=== PATIENT | male | born 1955 | race Caucasian/White ===

== ENCOUNTER 2016-06-05 02:35 | Outpatient (CLI) | payer OTHER ==
[2016-06-05] MEDS ORDERED: CELEXA20 MG PO (02:55)
[2016-06-05] MEDS ORDERED: METOCLOPRAM10 MG PO (02:55)
[2016-06-05] MEDS ORDERED: EQ OMEPRAZOLE20 MG PO (02:56)
[2016-06-05] MEDS ORDERED: ALLERGY REL10 MG PO (02:57)
[2016-06-05] MEDS ORDERED: FLUTICASONE50 MCG (02:58)
[2016-06-05] MEDS ORDERED: PROAIR HFA IN (02:59)
[2016-06-05] MEDS ORDERED: ANORO ELLIPTA 61 AER IN (03:09)
== END 2016-06-05 02:46 | disposition short-term general hospital (02) ==
LOC: AMB 02:35
DX: R06.09 Other forms of dyspnea (principal)
CPT/HCPCS: A0425; A0427

== ENCOUNTER 2016-06-05 02:46 | Observation (INO) | payer OTHER ==
[~2016-06-05] VITALS: Ht 172.7 cm; Wt 77.3 kg
[2016-06-05 02:53] VITALS: BP 146/90; TEMP 98
[2016-06-05] MEDS ORDERED: CELEXA20 MG PO (02:55)
[2016-06-05] MEDS ORDERED: METOCLOPRAM10 MG PO (02:55)
[2016-06-05] MEDS ORDERED: EQ OMEPRAZOLE20 MG PO (02:56)
[2016-06-05] MEDS ORDERED: ALLERGY REL10 MG PO (02:57)
[2016-06-05] MEDS ORDERED: FLUTICASONE50 MCG (02:58)
[2016-06-05] MEDS ORDERED: PROAIR HFA IN (02:59)
[2016-06-05] MEDS ORDERED: ANORO ELLIPTA 61 AER IN (03:09)
[2016-06-05 04:25] LABS: PLATELET COUNT 283 K/uL (142-355)
[2016-06-05 04:32] LABS: POTASSIUM 3.8 mmol/L (3.6-5.2); SODIUM 134 mmol/L (136-145)
[2016-06-05 05:24] VITALS: BP 106/72; TEMP 97.6; Ht 172.7 cm; Wt 77.3 kg
[2016-06-05 08:25] VITALS: BP 145/70; TEMP 97.7
[2016-06-05 12:00] VITALS: BP 103/61; BP 112/68; TEMP 97.8; TEMP 98.5
[2016-06-05 16:00] VITALS: BP 112/68; TEMP 98.5
[2016-06-05 20:00] VITALS: BP 124/74; TEMP 98.2
[2016-06-06 00:04] VITALS: BP 100/55; TEMP 98.3
[2016-06-06 04:00] VITALS: BP 107/67; TEMP 98.1
[2016-06-06 05:03] LABS: SODIUM 133 mmol/L (136-145)
[2016-06-06 05:08] LABS: PLATELET COUNT 279 K/uL (142-355)
[2016-06-06 08:00] VITALS: BP 123/73; TEMP 97.8
== END 2016-06-06 12:30 | disposition home or self-care (01) ==
LOC: ED 02:46 → MED/SURG 04:45
PROVIDERS: Emergency Medicine; ADMIT Emergency Medicine
DX: J44.1 Chronic obstructive pulmonary disease with (acute) exacerbation (principal); Z85.118 Personal history of other malignant neoplasm of bronchus and lung; R06.02 Shortness of breath
CPT/HCPCS: 36415; 36600; 80053; 82550; 82805; 83880; 84484; 85027; 94640; 94664; 94760; 96367; 96372; 96374; 96375; 99220; 99283; G0378; J1650; J2930; J3490; Q9963

== ENCOUNTER 2016-07-26 18:58 | Emergency (ER) | payer OTHER ==
[~2016-07-26] VITALS: Ht 175.3 cm; Wt 79.4 kg
[~2016-07-26 18:58] MED LIST: ALLERGY REL10 MG PO; ANORO ELLIPTA 61 AER IN; CELEXA20 MG PO; EQ OMEPRAZOLE20 MG PO; FLUTICASONE50 MCG; METOCLOPRAM10 MG PO; PROAIR HFA IN
[2016-07-26 21:25] LABS: PLATELET COUNT 250 K/uL (142-355)
[2016-07-26 21:46] LABS: POTASSIUM 4.3 mmol/L (3.6-5.2); SODIUM 135 mmol/L (136-145)
[2016-07-26 23:05] VITALS: TEMP 98.2
[2016-07-26 23:09] VITALS: BP 124/82
== END 2016-07-26 23:10 | disposition home or self-care (01) ==
LOC: ED 18:58
PROVIDERS: Emergency Medicine
DX: J44.1 Chronic obstructive pulmonary disease with (acute) exacerbation (principal)
CPT/HCPCS: 36415; 80053; 85027; 96374; 99284; J2930

== ENCOUNTER 2016-10-19 00:16 | Outpatient (CLI) | payer OTHER | END 2016-10-19 00:27 | disposition short-term general hospital (02) | LOC: AMB 00:16 | DX: R06.02 Shortness of breath (principal); R00.0 Tachycardia, unspecified | CPT/HCPCS: A0425; A0427 ==

== ENCOUNTER 2016-10-19 00:30 | Emergency (ER) | payer OTHER ==
[~2016-10-19] VITALS: Ht 162.6 cm; Wt 80.7 kg
[2016-10-19 00:59] LABS: PLATELET COUNT 333 K/uL (142-355)
[2016-10-19 01:09] LABS: PARTIAL THROMBOPLASTIN TIME 27.1 SECONDS (24.5-33.6)
[2016-10-19 01:38] LABS: SODIUM 134 mmol/L (136-145)
[2016-10-19 02:40] VITALS: BP 109/65; TEMP 98.6
== END 2016-10-19 02:41 | disposition home or self-care (01) ==
LOC: ED 00:30
PROVIDERS: Emergency Medicine
DX: J44.1 Chronic obstructive pulmonary disease with (acute) exacerbation (principal)
CPT/HCPCS: 36415; 80053; 82550; 82553; 83880; 84484; 85027; 85610; 85730; 93005; 96365; 96375; 99284; J2060; J2930; J3475

== ENCOUNTER 2016-12-04 21:04 | Emergency (ER) | payer OTHER ==
[~2016-12-04] VITALS: Ht 172.7 cm; Wt 78.9 kg
[2016-12-04 23:20] LABS: POTASSIUM 4.2 mmol/L (3.6-5.2); SODIUM 131 mmol/L (136-145)
[2016-12-05 00:19] VITALS: BP 128/77; TEMP 08.8
== END 2016-12-05 00:21 | disposition home or self-care (01) ==
LOC: ED 21:04
PROVIDERS: Specialist
DX: J44.1 Chronic obstructive pulmonary disease with (acute) exacerbation (principal)
CPT/HCPCS: 36415; 36600; 80053; 82550; 82553; 82805; 83735; 84100; 94640; 94664; 96374; 99284; J2930

== ENCOUNTER 2017-01-02 00:17 | Outpatient (CLI) | payer OTHER | END 2017-01-02 00:26 | disposition short-term general hospital (02) | LOC: AMB 00:17 | DX: R06.02 Shortness of breath (principal); R00.0 Tachycardia, unspecified | CPT/HCPCS: A0425; A0427 ==

== ENCOUNTER 2017-01-03 00:28 | Emergency (ER) | payer OTHER ==
[~2017-01-03] VITALS: Ht 175.3 cm; Wt 79.4 kg
[2017-01-03 00:53] LABS: PLATELET COUNT 321 K/uL (142-355)
[2017-01-03 00:58] LABS: POTASSIUM 3.8 mmol/L (3.6-5.2); SODIUM 132 mmol/L (136-145)
[2017-01-03 01:54] VITALS: BP 118/72; TEMP 98.2
== END 2017-01-03 01:58 | disposition home or self-care (01) ==
LOC: ED 00:28
DX: R06.09 Other forms of dyspnea (principal); J45.901 Unspecified asthma with (acute) exacerbation; J44.1 Chronic obstructive pulmonary disease with (acute) exacerbation; J06.9 Acute upper respiratory infection, unspecified
CPT/HCPCS: 36600; 80053; 82805; 83880; 85027; 85379; 99283; J7040

== ENCOUNTER 2017-02-20 12:33 | Outpatient (CLI) | payer OTHER | END 2017-02-20 12:41 | disposition short-term general hospital (02) | LOC: AMB 12:33 | DX: R06.09 Other forms of dyspnea (principal); R05 Cough | CPT/HCPCS: A0425; A0427 ==

== ENCOUNTER 2017-02-20 12:43 | Emergency (ER) | payer OTHER ==
[~2017-02-20] VITALS: Ht 172.7 cm; Wt 78.0 kg
[2017-02-20 13:46] LABS: PLATELET COUNT 301 K/uL (142-355)
[2017-02-20 14:11] LABS: SODIUM 132 mmol/L (136-145)
[2017-02-20 16:00] VITALS: BP 126/69; TEMP 98.6
== END 2017-02-20 16:10 | disposition home or self-care (01) ==
LOC: ED 12:43
PROVIDERS: Emergency Medicine
DX: J44.1 Chronic obstructive pulmonary disease with (acute) exacerbation (principal); J43.9 Emphysema, unspecified
CPT/HCPCS: 36600; 80053; 81000; 82550; 82805; 84484; 85027; 93005; 94664; 96365; 96375; 99284; J1956; J2930

== ENCOUNTER 2017-03-25 14:14 | Outpatient (CLI) | payer OTHER | END 2017-03-25 14:22 | disposition short-term general hospital (02) | LOC: AMB 14:14 | DX: R06.09 Other forms of dyspnea (principal) | CPT/HCPCS: A0425; A0427 ==

== ENCOUNTER 2017-03-25 14:22 | Emergency (ER) | payer OTHER ==
[~2017-03-25] VITALS: Ht 175.3 cm; Wt 79.8 kg
[2017-03-25 14:25] VITALS: TEMP 98.4
[2017-03-25 15:33] LABS: PLATELET COUNT 285 K/uL (142-355)
[2017-03-25 15:37] LABS: POTASSIUM 3.9 mmol/L (3.6-5.2)
[2017-03-25 17:30] VITALS: BP 128/76
== END 2017-03-25 17:30 | disposition home or self-care (01) ==
LOC: ED 14:22
PROVIDERS: Family Medicine
DX: J44.1 Chronic obstructive pulmonary disease with (acute) exacerbation (principal); E87.1 Hypo-osmolality and hyponatremia
CPT/HCPCS: 36415; 80053; 85027; 87804; 94664; 96361; 96365; 99284; J1956

== ENCOUNTER 2017-04-12 15:16 | Outpatient (CLI) | payer OTHER | END 2017-04-12 15:26 | disposition short-term general hospital (02) | LOC: AMB 15:16 | DX: R06.09 Other forms of dyspnea (principal) | CPT/HCPCS: A0425; A0427 ==

== ENCOUNTER 2017-04-12 15:31 | Observation (INO) | payer OTHER ==
[2017-04-12] VITALS (8 sets, daily range): BP systolic 106–137; BP diastolic 60–89; TEMP 97.9–98.1; Ht 172.7 cm; Wt 76.5 kg
[~2017-04-12] VITALS: Ht 172.7 cm; Wt 76.5 kg
[2017-04-12 16:03] LABS: PLATELET COUNT 294 K/uL (142-355)
[2017-04-12 16:07] LABS: POTASSIUM 4.2 mmol/L (3.6-5.2)
[2017-04-13] VITALS: BP 101/66; TEMP 98.7
--- NOTE | 2017-04-13 01:31 | NUR ---
PT UP OUT OF BED. EATING A SNACK. NO COMPLAINTS OF PAIN OR DISCOMFORT. NO S/SX OF RESP DISTRESS.
[2017-04-13 04:00] VITALS: BP 97/58; TEMP 98.8
[2017-04-13 05:11] LABS: PLATELET COUNT 257 K/uL (142-355)
[2017-04-13 05:41] LABS: POTASSIUM 4.2 mmol/L (3.6-5.2); SODIUM 128 mmol/L (136-145)
[2017-04-13 08:00] VITALS: BP 104/63; TEMP 98.3
[2017-04-13 12:00] VITALS: BP 94/64; TEMP 98.6
[2017-04-13 16:00] VITALS: BP 106/65; TEMP 98.5
[2017-04-13 20:00] VITALS: BP 110/58; TEMP 98
[2017-04-14] VITALS: BP 90/50; TEMP 98.3
[2017-04-14 04:00] VITALS: BP 91/53; TEMP 98.1
[2017-04-14 06:20] LABS: POTASSIUM 3.9 mmol/L (3.6-5.2)
[2017-04-14 06:22] LABS: PLATELET COUNT 271 K/uL (142-355)
[2017-04-14 08:09] VITALS: BP 111/66; TEMP 98.6
[2017-04-14] MEDS ORDERED: PROAIR HFA IN (09:33)
== END 2017-04-14 11:15 | disposition home or self-care (01) ==
LOC: ED 15:31 → MED/SURG 17:28
PROVIDERS: Emergency Medicine; ADMIT Specialist
DX: J44.1 Chronic obstructive pulmonary disease with (acute) exacerbation (principal); I10 Essential (primary) hypertension; K21.9 Gastro-esophageal reflux disease without esophagitis
CPT/HCPCS: 36415; 36600; 80048; 80053; 82805; 84484; 85027; 87070; 87205; 94640; 94664; 94760; 96372; 99220; 99283; G0378; J1650; J2930

== ENCOUNTER 2017-04-17 02:35 | Outpatient (CLI) | payer OTHER | END 2017-04-17 02:44 | disposition short-term general hospital (02) | LOC: AMB 02:35 | DX: R06.09 Other forms of dyspnea (principal) | CPT/HCPCS: A0425; A0427 ==

== ENCOUNTER 2017-04-17 02:47 | Emergency (ER) | payer OTHER ==
[~2017-04-17] VITALS: Ht 172.7 cm; Wt 78.0 kg
[2017-04-17 03:43] LABS: PLATELET COUNT 297 K/uL (142-355)
[2017-04-17 03:46] LABS: POTASSIUM 3.8 mmol/L (3.6-5.2)
[2017-04-17 04:06] VITALS: BP 115/69; TEMP 98.5
== END 2017-04-17 04:12 | disposition home or self-care (01) ==
LOC: ED 02:47
DX: J44.1 Chronic obstructive pulmonary disease with (acute) exacerbation (principal); R00.0 Tachycardia, unspecified
CPT/HCPCS: 36600; 80053; 82805; 85027; 93005; 94664; 94760; 96374; 99284; J2930

== ENCOUNTER 2017-05-23 12:41 | Outpatient (CLI) | payer OTHER | END 2017-05-23 12:49 | disposition short-term general hospital (02) | LOC: AMB 12:41 | DX: R06.02 Shortness of breath (principal); J44.9 Chronic obstructive pulmonary disease, unspecified | CPT/HCPCS: A0425; A0427 ==

== ENCOUNTER 2017-05-23 13:05 | Emergency (ER) | payer OTHER ==
[~2017-05-23] VITALS: Ht 172.7 cm; Wt 76.2 kg
[2017-05-23 13:31] LABS: PLATELET COUNT 266 K/uL (142-355)
[2017-05-23 14:14] VITALS: BP 124/76; TEMP 99
== END 2017-05-23 14:15 | disposition home or self-care (01) ==
LOC: ED 13:05
DX: J45.901 Unspecified asthma with (acute) exacerbation (principal); J98.01 Acute bronchospasm
CPT/HCPCS: 80053; 83880; 85027; 94664; 96374; 99284; J2930

== ENCOUNTER 2017-10-20 09:04 | Outpatient (CLI) | payer OTHER ==
[2017-10-20] MEDS ORDERED: LORA0.5T17 PO (11:25)
== END 2017-10-20 09:15 | disposition short-term general hospital (02) ==
LOC: AMB 09:04
DX: J44.1 Chronic obstructive pulmonary disease with (acute) exacerbation (principal)
CPT/HCPCS: A0425; A0427

== ENCOUNTER 2017-10-20 09:19 | Observation (INO) | payer OTHER ==
[~2017-10-20] VITALS: Ht 172.7 cm; Wt 74.4 kg
[2017-10-20 09:17] VITALS: BP 116/71; TEMP 99.9
[2017-10-20 09:48] LABS: PLATELET COUNT 306 K/uL (142-355)
[2017-10-20 10:03] LABS: POTASSIUM 4.1 mmol/L (3.6-5.2); SODIUM 135 mmol/L (136-145)
[2017-10-20] MEDS ORDERED: LORA0.5T17 PO (11:25)
[2017-10-20 14:23] VITALS: BP 136/103; TEMP 98.1; Ht 172.7 cm; Wt 74.4 kg
[2017-10-20 17:15] LABS: PARTIAL THROMBOPLASTIN TIME 29.9 SECONDS (24.5-33.6)
[2017-10-20 20:00] VITALS: BP 108/61; TEMP 98.6
[2017-10-21] VITALS: BP 108/58; TEMP 98.8
[2017-10-21 04:01] VITALS: BP 107/67; TEMP 98.4
[2017-10-21 06:26] LABS: PLATELET COUNT 280 K/uL (142-355)
[2017-10-21 08:00] LABS: POTASSIUM 4.3 mmol/L (3.6-5.2)
--- NOTE | 2017-10-21 12:22 | NUR ---
IV D/C'D. TELE D/C'D. D/C INSTRUCTIONS GIVEN. PT TO FU WITH DR. GERONIMO, DR. DORAN AND MARY BERRY. APTS GIVEN TO PT. PT HAS NO FUTHER QUESTIONS. PT WHEELED OUT VIA W/C. NO PROBLEMS NOTED.
== END 2017-10-21 10:40 | disposition home or self-care (01) ==
LOC: ED 09:19 → MED/SURG 10:25
DX: J43.9 Emphysema, unspecified (principal); J44.9 Chronic obstructive pulmonary disease, unspecified; R94.31 Abnormal electrocardiogram [ECG] [EKG]; R06.02 Shortness of breath
CPT/HCPCS: 36415; 80053; 82550; 82553; 83615; 84484; 85027; 85610; 85730; 93005; 94640; 94664; 94760; 96374; 99220; 99284; G0378; J2930

== ENCOUNTER 2017-11-05 00:07 | Outpatient (CLI) | payer OTHER ==
[~2017-11-05 00:07] MED LIST changes: +LORA0.5T17 PO
== END 2017-11-05 00:15 | disposition short-term general hospital (02) ==
LOC: AMB 00:07
DX: J44.1 Chronic obstructive pulmonary disease with (acute) exacerbation (principal)
CPT/HCPCS: A0425; A0427

== ENCOUNTER 2017-11-05 00:19 | Emergency (ER) | payer OTHER ==
[~2017-11-05] VITALS: Ht 172.7 cm; Wt 74.4 kg
[2017-11-05 00:15] VITALS: BP 134/82; TEMP 99.5
[2017-11-05 00:41] LABS: PLATELET COUNT 353 K/uL (142-355)
[2017-11-05 00:47] LABS: POTASSIUM 4.1 mmol/L (3.6-5.2); SODIUM 135 mmol/L (136-145)
[2017-11-05 01:40] VITALS: BP 108/71
[2017-11-05 02:45] VITALS: BP 106/77
== END 2017-11-05 02:45 | disposition left against medical advice (07) ==
LOC: ED 00:19 → MED/SURG 02:15 → ED 02:45
PROVIDERS: Emergency Medicine
DX: J44.9 Chronic obstructive pulmonary disease, unspecified (principal); J43.9 Emphysema, unspecified
CPT/HCPCS: 36600; 80053; 82550; 82553; 82805; 83605; 83880; 84484; 85027; 87040; 93005; 94664; 99284; J1940

== ENCOUNTER 2017-11-20 08:14 | Outpatient (CLI) | payer OTHER | END 2017-11-20 22:15 | disposition home or self-care (01) | LOC: CT 08:14 | DX: Z87.891 Personal history of nicotine dependence (principal); J44.1 Chronic obstructive pulmonary disease with (acute) exacerbation ==

== ENCOUNTER 2017-12-23 10:57 | Observation (INO) | payer OTHER ==
[~2017-12-23] VITALS: Ht 172.7 cm; Wt 74.1 kg
[2017-12-23 11:25] VITALS: BP 110/72; TEMP 97.8; Ht 172.7 cm; Wt 74.1 kg
[2017-12-23 11:31] LABS: PLATELET COUNT 286 K/uL (142-355)
[2017-12-23 11:46] LABS: POTASSIUM 3.7 mmol/L (3.6-5.2)
[2017-12-23 16:16] VITALS: BP 102/68; TEMP 98.6
[2017-12-23] MEDS ORDERED: PRED20TA27 PO (16:35)
[2017-12-23] MEDS ORDERED: BENZONATATE100 MG PO (16:39)
[2017-12-23] MEDS ORDERED: PROMETHAZINE PO (16:39)
== END 2017-12-23 17:07 | disposition home or self-care (01) ==
LOC: MED/SURG 10:57
PROVIDERS: Family Medicine; ADMIT Nurse Practitioner
DX: J44.1 Chronic obstructive pulmonary disease with (acute) exacerbation (principal); J06.9 Acute upper respiratory infection, unspecified; Z72.0 Tobacco use
CPT/HCPCS: 80053; 85027; 93005; 94664; 94760; 99220; G0378; G0379; J1650; J2930

== ENCOUNTER 2018-01-17 02:53 | Outpatient (CLI) | payer OTHER ==
[~2018-01-17 02:53] MED LIST changes: +BENZONATATE100 MG PO; +PRED20TA27 PO; +PROMETHAZINE PO
== END 2018-01-17 03:03 | disposition short-term general hospital (02) ==
LOC: AMB 02:53
DX: R06.02 Shortness of breath (principal); R06.09 Other forms of dyspnea
CPT/HCPCS: A0425; A0427

== ENCOUNTER 2018-01-17 03:07 | Emergency (ER) | payer OTHER ==
[~2018-01-17] VITALS: Ht 172.7 cm; Wt 73.9 kg
[2018-01-17 03:22] LABS: PLATELET COUNT 331 K/uL (142-355)
[2018-01-17 03:51] LABS: POTASSIUM 4.6 mmol/L (3.6-5.2); SODIUM 134 mmol/L (136-145)
[2018-01-17 04:58] VITALS: BP 118/78; TEMP 98.4
== END 2018-01-17 05:00 | disposition home or self-care (01) ==
LOC: ED 03:07
DX: J44.1 Chronic obstructive pulmonary disease with (acute) exacerbation (principal); R00.0 Tachycardia, unspecified
CPT/HCPCS: 36600; 80053; 82550; 82553; 82805; 84484; 85027; 87502; 94664; 96374; 99284; J2270

== ENCOUNTER 2018-04-03 07:00 | Outpatient (CLI) | payer OTHER | END 2018-04-03 07:08 | disposition short-term general hospital (02) | LOC: AMB 07:00 | DX: J44.1 Chronic obstructive pulmonary disease with (acute) exacerbation (principal) | CPT/HCPCS: A0425; A0427 ==

== ENCOUNTER 2018-04-03 07:11 | Emergency (ER) | payer OTHER ==
[~2018-04-03] VITALS: Ht 172.7 cm; Wt 73.9 kg
[2018-04-03 07:19] VITALS: TEMP 98.8
[2018-04-03 07:29] LABS: PLATELET COUNT 284 K/uL (142-355)
[2018-04-03 07:42] LABS: POTASSIUM 4.1 mmol/L (3.6-5.2)
[2018-04-03 09:50] VITALS: BP 111/73
== END 2018-04-03 09:54 | disposition home or self-care (01) ==
LOC: ED 07:11
PROVIDERS: Allergy & Immunology
DX: J44.1 Chronic obstructive pulmonary disease with (acute) exacerbation (principal); J18.9 Pneumonia, unspecified organism; R00.0 Tachycardia, unspecified
CPT/HCPCS: 36600; 80053; 82805; 83605; 84484; 85027; 87040; 87502; 93005; 96372; 99284; J0696; J2930

== ENCOUNTER 2018-05-01 08:23 | Outpatient (CLI) | payer OTHER | END 2018-05-01 08:32 | disposition short-term general hospital (02) | LOC: AMB 08:23 | DX: R06.00 Dyspnea, unspecified (principal) | CPT/HCPCS: A0425; A0427 ==

== ENCOUNTER 2018-05-01 08:35 | Emergency (ER) | payer OTHER ==
[~2018-05-01] VITALS: Ht 172.7 cm; Wt 73.9 kg
[2018-05-01 08:38] VITALS: TEMP 97.6
[2018-05-01 09:41] LABS: PLATELET COUNT 297 K/uL (142-355)
[2018-05-01 09:46] LABS: POTASSIUM 4.7 mmol/L (3.6-5.2)
[2018-05-01 11:32] VITALS: BP 122/65
== END 2018-05-01 11:34 | disposition home or self-care (01) ==
LOC: ED 08:35
PROVIDERS: Family Medicine
DX: J44.1 Chronic obstructive pulmonary disease with (acute) exacerbation (principal)
CPT/HCPCS: 80053; 85027; 94664; 96360; 99284

== ENCOUNTER 2018-05-06 22:59 | Outpatient (CLI) | payer OTHER | END 2018-05-06 23:11 | disposition short-term general hospital (02) | LOC: AMB 22:59 | DX: J44.1 Chronic obstructive pulmonary disease with (acute) exacerbation (principal) | CPT/HCPCS: A0425; A0427 ==

== ENCOUNTER 2018-05-07 03:00 | Outpatient (CLI) | payer OTHER | END 2018-05-07 04:19 | disposition short-term general hospital (02) | LOC: AMB 03:00 | DX: R09.02 Hypoxemia (principal); I95.89 Other hypotension; J44.1 Chronic obstructive pulmonary disease with (acute) exacerbation; I48.91 Unspecified atrial fibrillation | CPT/HCPCS: A0425; A0427 ==

== ENCOUNTER 2018-06-11 01:21 | Outpatient (CLI) | payer OTHER ==
[2018-06-12] MEDS ORDERED: AZIT250T3 PO (10:38)
[2018-06-12] MEDS ORDERED: CEFD300C2 PO (10:39)
[2018-06-12] MEDS ORDERED: PREDNISONE20 MG PO (10:41)
== END 2018-06-11 01:32 | disposition short-term general hospital (02) ==
LOC: AMB 01:21
DX: R06.02 Shortness of breath (principal)
CPT/HCPCS: A0425; A0427

== ENCOUNTER 2018-06-11 01:39 | Observation (INO) | payer OTHER ==
[~2018-06-11] VITALS: Ht 180.3 cm; Wt 75.8 kg
[2018-06-11 01:39] VITALS: BP 147/86; TEMP 98.2
[2018-06-11 02:08] LABS: PLATELET COUNT 311 K/uL (142-355)
[2018-06-11 02:15] LABS: POTASSIUM 3.8 mmol/L (3.6-5.2)
[2018-06-11 02:38] VITALS: BP 126/64
[2018-06-11 04:31] VITALS: BP 121/74; TEMP 97.6; Ht 180.3 cm; Wt 75.8 kg
[2018-06-11 08:00] VITALS: BP 108/65; TEMP 98
[2018-06-11 16:00] VITALS: BP 106/57; TEMP 97.9
[2018-06-11 20:00] VITALS: BP 121/61; TEMP 98.2
[2018-06-12] VITALS: BP 104/56; TEMP 97.9
[2018-06-12 04:00] VITALS: BP 108/63; TEMP 98.1
[2018-06-12 05:24] LABS: PLATELET COUNT 285 K/uL (142-355)
[2018-06-12 05:45] LABS: POTASSIUM 4.1 mmol/L (3.6-5.2)
[2018-06-12] MEDS ORDERED: AZIT250T3 PO (10:38)
[2018-06-12] MEDS ORDERED: CEFD300C2 PO (10:39)
[2018-06-12] MEDS ORDERED: PREDNISONE20 MG PO (10:41)
== END 2018-06-12 11:15 | disposition home or self-care (01) ==
LOC: ED 01:39 → MED/SURG 03:00
PROVIDERS: Emergency Medicine; ADMIT Internal Medicine
DX: J44.1 Chronic obstructive pulmonary disease with (acute) exacerbation (principal); E87.1 Hypo-osmolality and hyponatremia; D72.828 Other elevated white blood cell count; F17.200 Nicotine dependence, unspecified, uncomplicated
CPT/HCPCS: 36591; 80053; 85027; 94640; 94664; 94760; 96365; 96367; 96374; 96375; 99220; 99284; G0378; J0696; J1650; J2930

== ENCOUNTER 2018-07-02 23:58 | Outpatient (CLI) | payer OTHER ==
[~2018-07-02 23:58] MED LIST changes: +AZIT250T3 PO; +CEFD300C2 PO; +PREDNISONE20 MG PO
== END 2018-07-03 00:09 | disposition short-term general hospital (02) ==
LOC: AMB 23:58
DX: R06.02 Shortness of breath (principal)
CPT/HCPCS: A0425; A0427

== ENCOUNTER 2018-07-03 00:11 | Emergency (ER) | payer OTHER ==
[~2018-07-03] VITALS: Ht 180.3 cm; Wt 75.8 kg
[2018-07-03 00:11] VITALS: TEMP 98.8
[2018-07-03 00:31] LABS: PLATELET COUNT 310 K/uL (142-355)
[2018-07-03 01:14] LABS: POTASSIUM 3.8 mmol/L (3.6-5.2); SODIUM 136 mmol/L (136-145)
[2018-07-03 03:10] VITALS: BP 107/65
== END 2018-07-03 03:10 | disposition home or self-care (01) ==
LOC: ED 00:11
PROVIDERS: Emergency Medicine
DX: J44.9 Chronic obstructive pulmonary disease, unspecified (principal); R00.0 Tachycardia, unspecified
CPT/HCPCS: 80053; 82550; 82553; 83880; 84484; 85027; 85379; 93005; 96361; 96365; 99284; J1940

== ENCOUNTER 2018-07-03 21:15 | Outpatient (CLI) | payer OTHER | END 2018-07-03 21:20 | disposition short-term general hospital (02) | LOC: AMB 21:15 | DX: R06.02 Shortness of breath (principal); J44.1 Chronic obstructive pulmonary disease with (acute) exacerbation | CPT/HCPCS: A0425; A0427 ==

== ENCOUNTER 2018-07-03 21:22 | Inpatient (IN) | payer OTHER ==
[~2018-07-03] VITALS: Ht 175.3 cm; Wt 72.6 kg
[2018-07-03 21:22] VITALS: BP 210/121; TEMP 99.3
[2018-07-03 22:12] LABS: POTASSIUM 4.2 mmol/L (3.6-5.2); SODIUM 135 mmol/L (136-145)
[2018-07-03 22:14] LABS: PLATELET COUNT 343 K/uL (142-355)
[2018-07-04] VITALS (8 sets, daily range): BP systolic 95–135; BP diastolic 59–85; TEMP 97.6–98.3; Ht 175.3 cm; Wt 72.6 kg
[2018-07-04 05:40] LABS: PLATELET COUNT 306 K/uL (142-355)
[2018-07-04 06:40] LABS: POTASSIUM 4.6 mmol/L (3.6-5.2)
[2018-07-05 04:00] VITALS: BP 116/64; TEMP 97.9
[2018-07-05 05:52] LABS: PLATELET COUNT 291 K/uL (142-355)
[2018-07-05 06:12] LABS: POTASSIUM 3.8 mmol/L (3.6-5.2)
[2018-07-05 08:00] VITALS: BP 107/65; TEMP 98.1
[2018-07-05 12:00] VITALS: BP 119/55; TEMP 97.8
== END 2018-07-05 15:20 | disposition home or self-care (01) | DRG 191 ==
LOC: ED 21:22 → MED/SURG 23:20
PROVIDERS: Family Medicine; Internal Medicine; ADMIT Family Medicine
DX: J44.1 Chronic obstructive pulmonary disease with (acute) exacerbation (principal); J96.10 Chronic respiratory failure, unspecified whether with hypoxia or hypercapnia; E87.1 Hypo-osmolality and hyponatremia; Z72.0 Tobacco use; D72.828 Other elevated white blood cell count; F41.8 Other specified anxiety disorders
CPT/HCPCS: 36415; 36600; 80053; 82550; 82553; 82805; 83605; 83880; 84484; 85027; 85379; 93005; 94640; 94664; 94760; 96365; 96375; 99284; J1650; J1956; J2270; J2930

== ENCOUNTER 2018-08-16 20:09 | Outpatient (CLI) | payer OTHER | END 2018-08-16 20:19 | disposition short-term general hospital (02) | LOC: AMB 20:09 | DX: R06.02 Shortness of breath (principal); J44.9 Chronic obstructive pulmonary disease, unspecified | CPT/HCPCS: A0425; A0427 ==

== ENCOUNTER 2018-08-16 20:23 | Emergency (ER) | payer OTHER ==
[~2018-08-16] VITALS: Ht 175.3 cm; Wt 74.8 kg
[2018-08-16 20:50] LABS: PLATELET COUNT 356 K/uL (142-355)
[2018-08-16 21:01] LABS: POTASSIUM 4.1 mmol/L (3.6-5.2)
[2018-08-16 23:25] VITALS: BP 111/68; TEMP 98.3
== END 2018-08-16 23:25 | disposition home or self-care (01) ==
LOC: ED 20:23
PROVIDERS: Internal Medicine
DX: J44.1 Chronic obstructive pulmonary disease with (acute) exacerbation (principal); R09.02 Hypoxemia; D72.828 Other elevated white blood cell count
CPT/HCPCS: 36415; 36600; 80053; 82805; 85027; 94664; 96365; 99284; J0456

== ENCOUNTER 2018-10-24 13:28 | Observation (INO) | payer OTHER ==
[~2018-10-24] VITALS: Ht 172.7 cm; Wt 71.4 kg
[2018-10-24] VITALS (11 sets, daily range): BP systolic 106–128; BP diastolic 53–90; TEMP 98–98.9; Ht 172.7 cm; Wt 71.4 kg
[2018-10-24 14:10] LABS: PLATELET COUNT 319 K/uL (142-355)
[2018-10-24 14:17] LABS: POTASSIUM 3.5 mmol/L (3.6-5.2); SODIUM 136 mmol/L (136-145)
[2018-10-24 14:28] LABS: PARTIAL THROMBOPLASTIN TIME 26.7 SECONDS (24.5-33.6)
[2018-10-24] MEDS ORDERED: ALBUTEROL0.083 % INH (16:19)
[2018-10-24] MEDS ORDERED: TRELEGY ELLIPTA1 AER INH (16:20)
[2018-10-25 04:00] VITALS: BP 109/60; TEMP 98.4
[2018-10-25 08:00] VITALS: BP 118/67; TEMP 98.8
[2018-10-25 12:00] VITALS: BP 135/88; TEMP 98.4
[2018-10-25] MEDS ORDERED: LEVO250T2 PO (15:30)
[2018-10-25] MEDS ORDERED: PREDNISONE20 MG PO (15:32)
[2018-10-25] MEDS ORDERED: PREDNISONE10 MG PO (15:34)
[2018-10-25 16:00] VITALS: BP 130/75; TEMP 98.3
== END 2018-10-25 16:15 | disposition home or self-care (01) ==
LOC: ED 13:28 → MED/SURG 14:50
PROVIDERS: ADMIT Hospitalist
DX: J44.0 Chronic obstructive pulmonary disease with (acute) lower respiratory infection (principal); J20.9 Acute bronchitis, unspecified; J44.1 Chronic obstructive pulmonary disease with (acute) exacerbation; R06.09 Other forms of dyspnea; R09.02 Hypoxemia; K21.9 Gastro-esophageal reflux disease without esophagitis; F32.89 Other specified depressive episodes; R06.02 Shortness of breath; R11.2 Nausea with vomiting, unspecified
CPT/HCPCS: 36415; 36600; 80053; 82550; 82805; 83880; 84484; 85027; 85610; 85730; 87040; 87070; 87077; 87186; 87205; 90658; 93005; 94640; 94664; 94760; 96365; 96366; 96375; 99220; 99284; G0378; J0456; J0696; J1650; J1956; J2920; J2930

== ENCOUNTER 2018-10-26 23:20 | Outpatient (CLI) | payer OTHER ==
[~2018-10-26 23:20] MED LIST changes: +ALBUTEROL0.083 % INH; +LEVO250T2 PO; +PREDNISONE10 MG PO; +TRELEGY ELLIPTA1 AER INH
== END 2018-10-26 23:26 | disposition short-term general hospital (02) ==
LOC: AMB 23:20
DX: R06.09 Other forms of dyspnea (principal); R06.02 Shortness of breath
CPT/HCPCS: A0425; A0427

== ENCOUNTER 2018-10-26 23:33 | Observation (INO) | payer OTHER ==
[~2018-10-26] VITALS: Ht 172.7 cm; Wt 69.0 kg
[2018-10-26 23:33] VITALS: BP 180/96; TEMP 98.2
[2018-10-26 23:42] VITALS: BP 180/96; TEMP 98.1
[2018-10-26 23:55] LABS: PLATELET COUNT 369 K/uL (142-355)
[2018-10-27] VITALS (9 sets, daily range): BP systolic 105–142; BP diastolic 52–88; TEMP 97.5–98.9; Ht 172.7 cm; Wt 69.0 kg
[2018-10-27 00:06] LABS: POTASSIUM 4.4 mmol/L (3.6-5.2); SODIUM 135 mmol/L (136-145)
[2018-10-27 00:13] LABS: PARTIAL THROMBOPLASTIN TIME 25.8 SECONDS (24.5-33.6)
[2018-10-27 12:54] LABS: PLATELET COUNT 285 K/uL (142-355)
[2018-10-27 13:05] LABS: POTASSIUM 3.9 mmol/L (3.6-5.2)
[2018-10-28] VITALS: BP 116/71; TEMP 98.7
[2018-10-28 04:00] VITALS: BP 113/63; TEMP 98.3
[2018-10-28 04:59] LABS: PLATELET COUNT 265 K/uL (142-355)
[2018-10-28 08:00] VITALS: BP 95/51; TEMP 98.6
== END 2018-10-28 09:37 | disposition home or self-care (01) ==
LOC: ED 23:33 → MED/SURG 10-27 00:59
PROVIDERS: Family Medicine; ADMIT Hospitalist
DX: J44.1 Chronic obstructive pulmonary disease with (acute) exacerbation (principal); R06.09 Other forms of dyspnea; R05 Cough; D72.828 Other elevated white blood cell count; I10 Essential (primary) hypertension; R53.1 Weakness; F41.8 Other specified anxiety disorders; J98.01 Acute bronchospasm
CPT/HCPCS: 36415; 36600; 80053; 81000; 82550; 82805; 83880; 84484; 85027; 85610; 85730; 87040; 93005; 94640; 94664; 94760; 96365; 96366; 96367; 96372; 96374; 96375; 99220; 99284; G0378; J0456; J1650; J1956; J2930

== ENCOUNTER 2018-12-02 20:04 | Outpatient (CLI) | payer OTHER | END 2018-12-02 20:14 | disposition short-term general hospital (02) | LOC: AMB 20:04 | DX: R06.02 Shortness of breath (principal); R06.2 Wheezing; J44.1 Chronic obstructive pulmonary disease with (acute) exacerbation | CPT/HCPCS: A0425; A0427 ==

== ENCOUNTER 2018-12-02 20:20 | Emergency (ER) | payer OTHER ==
[~2018-12-02] VITALS: Ht 172.7 cm; Wt 70.3 kg
[2018-12-02 22:25] VITALS: BP 124/78; TEMP 97.8
== END 2018-12-02 22:25 | disposition home or self-care (01) ==
LOC: ED 20:20
DX: J44.1 Chronic obstructive pulmonary disease with (acute) exacerbation (principal); F17.210 Nicotine dependence, cigarettes, uncomplicated
CPT/HCPCS: 94664; 96374; 99284

== ENCOUNTER 2018-12-03 08:50 | Outpatient (CLI) | payer OTHER | END 2018-12-03 08:58 | disposition short-term general hospital (02) | LOC: AMB 08:50 | DX: J44.1 Chronic obstructive pulmonary disease with (acute) exacerbation (principal) | CPT/HCPCS: A0425; A0427 ==

== ENCOUNTER 2018-12-03 08:59 | Emergency (ER) | payer OTHER ==
[~2018-12-03] VITALS: Ht 172.7 cm; Wt 70.3 kg
[2018-12-03 09:52] LABS: PLATELET COUNT 365 K/uL (142-355)
[2018-12-03 09:58] LABS: POTASSIUM 4.3 mmol/L (3.6-5.2)
[2018-12-03 12:32] VITALS: BP 132/70; TEMP 98.2
== END 2018-12-03 12:32 | disposition home or self-care (01) ==
LOC: ED 09:02
PROVIDERS: Family Medicine
DX: J44.1 Chronic obstructive pulmonary disease with (acute) exacerbation (principal); J06.9 Acute upper respiratory infection, unspecified; F17.210 Nicotine dependence, cigarettes, uncomplicated
CPT/HCPCS: 36600; 80053; 82805; 85027; 99283

== ENCOUNTER 2018-12-04 21:02 | Outpatient (CLI) | payer OTHER | END 2018-12-04 21:11 | disposition short-term general hospital (02) | LOC: AMB 21:02 | DX: J44.1 Chronic obstructive pulmonary disease with (acute) exacerbation (principal); R06.2 Wheezing | CPT/HCPCS: A0425; A0427 ==

== ENCOUNTER 2018-12-04 21:23 | Emergency (ER) | payer OTHER ==
[~2018-12-04] VITALS: Ht 172.7 cm; Wt 70.3 kg
[2018-12-04 21:41] LABS: PLATELET COUNT 390 K/uL (142-355)
[2018-12-04 22:45] LABS: POTASSIUM 4.8 mmol/L (3.6-5.2); SODIUM 135 mmol/L (136-145)
[2018-12-04 23:33] VITALS: BP 97/68; TEMP 97.9
== END 2018-12-04 23:33 | disposition short-term general hospital (02) ==
LOC: ED 21:23
PROVIDERS: Emergency Medicine
DX: R06.03 Acute respiratory distress (principal); I48.92 Unspecified atrial flutter; I44.30 Unspecified atrioventricular block
CPT/HCPCS: 36600; 80053; 82550; 82553; 82805; 83880; 84484; 85027; 93005; 94664; 96374; 96375; 96376; 99285; J2060; J2270; J2930; J3475

== ENCOUNTER 2018-12-04 23:40 | Outpatient (CLI) | payer OTHER | END 2018-12-05 01:03 | disposition short-term general hospital (02) | LOC: AMB 23:40 | DX: R06.02 Shortness of breath (principal); J44.1 Chronic obstructive pulmonary disease with (acute) exacerbation | CPT/HCPCS: A0425; A0427 ==

== ENCOUNTER 2019-02-13 23:52 | Outpatient (CLI) | payer OTHER | END 2019-02-14 00:01 | disposition short-term general hospital (02) | LOC: AMB 23:52 | DX: R06.09 Other forms of dyspnea (principal) | CPT/HCPCS: A0425; A0427 ==

== ENCOUNTER 2019-02-14 00:14 | Emergency (ER) | payer OTHER ==
[~2019-02-14] VITALS: Ht 172.7 cm; Wt 70.3 kg
[2019-02-14 00:40] LABS: PLATELET COUNT 427 K/uL (142-355)
[2019-02-14 01:00] LABS: POTASSIUM 4.3 mmol/L (3.6-5.2)
[2019-02-14 04:00] VITALS: BP 121/74; TEMP 98.7
== END 2019-02-14 04:00 | disposition home or self-care (01) ==
LOC: ED 00:14
PROVIDERS: Hospitalist
DX: J44.1 Chronic obstructive pulmonary disease with (acute) exacerbation (principal); J40 Bronchitis, not specified as acute or chronic; F17.210 Nicotine dependence, cigarettes, uncomplicated
CPT/HCPCS: 36600; 80053; 82805; 83605; 85027; 87040; 94664; 96365; 96375; 99284; J1956; J2930

== ENCOUNTER 2019-03-14 23:13 | Outpatient (CLI) | payer OTHER | END 2019-03-14 23:23 | disposition short-term general hospital (02) | LOC: AMB 23:13 | DX: R06.02 Shortness of breath (principal) | CPT/HCPCS: A0425; A0427 ==

== ENCOUNTER 2019-03-14 23:23 | Emergency (ER) | payer OTHER ==
[~2019-03-14] VITALS: Ht 172.7 cm; Wt 70.3 kg
[2019-03-14 23:47] LABS: PLATELET COUNT 391 K/uL (142-355)
[2019-03-14 23:54] LABS: POTASSIUM 4.2 mmol/L (3.6-5.2); SODIUM 139 mmol/L (136-145)
[2019-03-15 00:45] VITALS: BP 147/81; TEMP 98.4
[2019-03-16] MEDS ORDERED: ALBUSOL (13:01)
== END 2019-03-15 00:45 | disposition home or self-care (01) ==
LOC: ED 23:23
PROVIDERS: Emergency Medicine
DX: J44.1 Chronic obstructive pulmonary disease with (acute) exacerbation (principal); R00.0 Tachycardia, unspecified
CPT/HCPCS: 80053; 82550; 83735; 83880; 84484; 85027; 93005; 94664; 96365; 99284; J3475

== ENCOUNTER 2019-03-15 23:14 | Outpatient (CLI) | payer OTHER ==
[2019-03-16] MEDS ORDERED: ALBUSOL (13:01)
== END 2019-03-15 23:25 | disposition short-term general hospital (02) ==
LOC: AMB 23:14
DX: R06.09 Other forms of dyspnea (principal); R00.0 Tachycardia, unspecified
CPT/HCPCS: A0425; A0427

== ENCOUNTER 2019-03-15 23:25 | Inpatient (IN) | payer OTHER ==
[~2019-03-15] VITALS: Ht 180.3 cm; Wt 70.3 kg
[2019-03-15 23:25] VITALS: BP 121/76; TEMP 98.3
[2019-03-15 23:43] LABS: PLATELET COUNT 434 K/uL (142-355)
[2019-03-16] VITALS (11 sets, daily range): BP systolic 102–124; BP diastolic 58–75; TEMP 97.1–98.5; Ht 180.3 cm; Wt 70.3 kg
[2019-03-16 00:12] LABS: PARTIAL THROMBOPLASTIN TIME 25.4 SECONDS (24.5-33.6)
[2019-03-16 00:22] LABS: POTASSIUM 4.6 mmol/L (3.6-5.2); SODIUM 138 mmol/L (136-145)
[2019-03-16] MEDS ORDERED: ALBUSOL (13:01)
[2019-03-17] VITALS (8 sets, daily range): BP systolic 106–177; BP diastolic 62–98; TEMP 97.8–98.6
[2019-03-18 00:30] VITALS: BP 127/75; TEMP 98.6
[2019-03-18 05:40] VITALS: BP 116/67; TEMP 98.6
[2019-03-18 08:00] VITALS: BP 110/68; TEMP 98.3
[2019-03-18 12:00] VITALS: BP 111/72; TEMP 97.7
[2019-03-18 16:00] VITALS: BP 114/72; TEMP 98.7
[2019-03-18 19:00] VITALS: BP 101/71; TEMP 98.1
[2019-03-19] VITALS: BP 123/92; BP 133/78
[2019-03-19 03:00] VITALS: BP 124/77; TEMP 98
[2019-03-19 06:00] VITALS: BP 140/80
[2019-03-19 08:00] VITALS: BP 125/80; TEMP 98.5
[2019-03-19] MEDS ORDERED: AZIT250T3 PO (10:53)
[2019-03-19] MEDS ORDERED: XOPENEX 1.25MG INH 3 INH (10:53)
[2019-03-19] MEDS ORDERED: PRED10TA27 PO (10:55)
[2019-03-19 11:00] VITALS: BP 140/78
== END 2019-03-19 11:20 | disposition short-term general hospital (02) | DRG 192 ==
LOC: ED 23:25 → ICU 03-16 02:19 → PCU 03-16 19:00
PROVIDERS: ADMIT Student in an Organized Health Care Education/Training Program
DX: J44.1 Chronic obstructive pulmonary disease with (acute) exacerbation (principal); K21.9 Gastro-esophageal reflux disease without esophagitis; R06.82 Tachypnea, not elsewhere classified; R09.02 Hypoxemia
CPT/HCPCS: 36600; 80048; 82805; 83735; 83880; 84484; 85027; 85610; 85730; 87502; 93005; 94640; 94664; 94760; 96365; 96375; 99285; J0456; J2270; J2920; J3475; J3490

== ENCOUNTER 2019-06-10 19:19 | Observation (INO) | payer OTHER ==
[~2019-06-10] VITALS: Ht 172.7 cm; Wt 71.3 kg
[~2019-06-10 19:19] MED LIST changes: +ALBUSOL; +PRED10TA27 PO; +XOPENEX 1.25MG INH 3 INH
[2019-06-10 19:20] VITALS: BP 144/92; TEMP 99.9
[2019-06-10 20:21] LABS: PLATELET COUNT 323 K/uL (142-355)
[2019-06-10 20:29] LABS: POTASSIUM 3.9 mmol/L (3.6-5.2)
[2019-06-10 21:11] VITALS: BP 136/82
[2019-06-10 23:06] VITALS: BP 112/70
[2019-06-10 23:29] VITALS: BP 129/85; TEMP 98.3; Ht 172.7 cm; Wt 71.3 kg
[2019-06-11 04:00] VITALS: BP 119/74; TEMP 98.6
[2019-06-11 08:15] LABS: PLATELET COUNT 283 K/uL (142-355)
[2019-06-11 08:18] LABS: POTASSIUM 4.3 mmol/L (3.6-5.2)
--- NOTE | 2019-06-11 16:15 | NUR ---
PATIENT GIVEN DISCHARGE INSTRUCTIONS WITH VERBAL UNDERSTANDING NOTED. 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 PATIENT EDUCATED ON THE S/S OF ACUTE COPD EXACERBATION. PATIENT VERBALIZED UNDERSTANDING. IV 22G TO THE LEFT HAND REMOVED WITH TIP INTACT AND SECURED WITH TAPE, PATIENT TAKEN VIA WHEELCHAIR TO FRONT ENTRANCE TO POV WITHOUT DIFFICULTY.
== END 2019-06-11 16:15 | disposition home or self-care (01) ==
LOC: ED 19:19 → MED/SURG 22:43
PROVIDERS: Internal Medicine Endocrinology, Diabetes & Metabolism; ADMIT Family Medicine
DX: J44.1 Chronic obstructive pulmonary disease with (acute) exacerbation (principal); J96.01 Acute respiratory failure with hypoxia; K21.9 Gastro-esophageal reflux disease without esophagitis; Z72.0 Tobacco use
CPT/HCPCS: 36600; 80048; 80053; 81000; 82805; 85027; 87040; 87502; 87651; 93005; 94640; 94664; 94760; 96365; 96374; 96375; 99220; 99284; G0378; J0696; J1650; J1956; J2060; J2920; J3490

== ENCOUNTER 2019-06-12 20:37 | Inpatient (IN) | payer OTHER ==
[~2019-06-12] VITALS: Ht 172.7 cm; Wt 69.5 kg
[2019-06-12 20:37] VITALS: BP 139/89; TEMP 98.1
[2019-06-12 21:00] VITALS: BP 131/71
[2019-06-12 21:19] LABS: PLATELET COUNT 328 K/uL (142-355)
[2019-06-12 21:28] LABS: POTASSIUM 3.6 mmol/L (3.6-5.2); SODIUM 137 mmol/L (136-145)
[2019-06-12 21:30] VITALS: BP 138/81
[2019-06-12 22:00] VITALS: BP 133/77; TEMP 98
[2019-06-12 22:45] VITALS: BP 141/81; TEMP 98; Ht 172.7 cm; Wt 69.5 kg
[2019-06-13 08:00] VITALS: BP 165/87; TEMP 98.9
[2019-06-13 11:00] VITALS: BP 136/75; TEMP 98.6
[2019-06-13] MEDS ORDERED: LEVOFLOXACIN500 MG PO (13:19)
[2019-06-13] MEDS ORDERED: PREDNISONE10 M1 PO (13:22)
[2019-06-13 17:00] VITALS: BP 117/73; TEMP 97.3
[2019-06-13 20:00] VITALS: BP 127/73; TEMP 97.8
[2019-06-14] VITALS: BP 98/64; TEMP 98.8
[2019-06-14 04:00] VITALS: BP 113/74; TEMP 98.7
[2019-06-14 13:21] VITALS: BP 127/82; TEMP 99.1
[2019-06-14 16:15] VITALS: BP 108/66; TEMP 98.6
[2019-06-14 20:00] VITALS: BP 127/76; TEMP 98.7
[2019-06-15] VITALS: BP 119/75; TEMP 98.6
[2019-06-15 04:00] VITALS: BP 117/72; TEMP 97.7
[2019-06-15 08:55] VITALS: BP 122/82; TEMP 97.9
[2019-06-15] MEDS ORDERED: AZIT250T3 PO (11:09)
[2019-06-15] MEDS ORDERED: DIAZ5TAB20 PO (11:10)
[2019-06-15] MEDS ORDERED: PRED10TA27 PO (11:17)
--- NOTE | 2019-06-15 11:48 | NUR ---
IV DC TIP INTACT. PT INSTRUCTED THAAT RX WAS SENT TO PHARMACY. VALIUM 2 MG PO Q8HR PRN RX GIVAN TO PT.PT INTRUCTED TO TAKE MEDICATIONS INSSTRUCED. PT INSTRUCTEDD TO FOLLOW UP WITH PULMONOLIGIST AND PCP. PT VERBALIZES UNDERSTANDING. PT DC VIA WC
== END 2019-06-15 11:55 | disposition home or self-care (01) | DRG 192 ==
LOC: ED 20:37 → MED/SURG 21:30
PROVIDERS: Hospitalist; ADMIT Internal Medicine
DX: J44.1 Chronic obstructive pulmonary disease with (acute) exacerbation (principal); R09.02 Hypoxemia; R06.00 Dyspnea, unspecified; K21.9 Gastro-esophageal reflux disease without esophagitis
CPT/HCPCS: 36415; 80053; 82550; 82805; 83880; 84484; 85027; 85610; 85730; 87070; 87205; 87635; 93005; 94760; 96365; 96374; 96375; 99284; J1956; J2060; J2930; J3490; U0002

== ENCOUNTER 2019-08-17 18:38 | Emergency (ER) | payer OTHER ==
[~2019-08-17] VITALS: Ht 172.7 cm; Wt 69.4 kg
[~2019-08-17 18:38] MED LIST changes: +DIAZ5TAB20 PO; +LEVOFLOXACIN500 MG PO; +PREDNISONE10 M1 PO
[2019-08-17 19:22] LABS: PLATELET COUNT 377 K/uL (142-355)
[2019-08-17 19:33] LABS: POTASSIUM 3.7 mmol/L (3.6-5.2); SODIUM 136 mmol/L (136-145)
[2019-08-17 22:25] VITALS: BP 103/59; TEMP 98.6
== END 2019-08-17 22:25 | disposition home or self-care (01) ==
LOC: ED 18:46
PROVIDERS: Emergency Medicine
DX: J44.9 Chronic obstructive pulmonary disease, unspecified (principal); M79.18 Myalgia, other site; F17.210 Nicotine dependence, cigarettes, uncomplicated
CPT/HCPCS: 36600; 80053; 82550; 82553; 82805; 84484; 85027; 93005; 94664; 99284